=== PATIENT | male | born 1950 | race Caucasian/White ===

== ENCOUNTER 2017-09-23 20:33 | Emergency (ER) | payer OTHER ==
[2017-09-23 20:44] VITALS: TEMP 97.7
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
[2017-09-23 22:23] VITALS: BP 146/90; PULSE 70; RESP 18
== END 2017-09-23 22:23 | disposition home or self-care (01) ==
LOC: EC 20:33
DX: S40.811A Abrasion of right upper arm, initial encounter (principal); S70.211A Abrasion, right hip, initial encounter; S80.211A Abrasion, right knee, initial encounter; S90.511A Abrasion, right ankle, initial encounter; V23.4XXA Motorcycle driver injured in collision with car, pick-up truck or van in traffic accident, initial encounter; Y92.410 Unspecified street and highway as the place of occurrence of the external cause
CPT/HCPCS: 70450; 72125; 99284

== ENCOUNTER 2019-01-02 06:40 | Day surgery (SDC) | payer MEDICARE, OTHER ==
[2018-12-30 14:52] VITALS: BMI 24.3
[~2019-01-02 06:40] MED LIST: LACTATED RINGERS 1,000 ML IV SCH; LIDOCAINE 1% 20 ML VIAL (10MG/ML) FOR IV START INTRADERMA PRN
[2019-01-02 07:10] VITALS: RESP 18; TEMP 97.9
[2019-01-02 07:14] LABS: Glucose,Whole Blood 116 mg/dL (75-99)
[2019-01-02] MEDS ORDERED: LIDOCAINE 1% INJ 10MG/ML (20 ML MDV) ONE (07:49)
[2019-01-02] MEDS ORDERED: PROPOFOL 10 MG/ML 20 ML VIAL IV ONE (07:49)
--- NOTE | 2019-01-02 07:54 | P.GSHP ---
History of Present Illness H&P Date: 01/02/19 Chief Complaint: Colon cancer screening Patient today for colonoscopy. Last colonoscopy 5-6 years ago. He was told he had polyps then. No bowel related complaints. No family history of colon cancer. Past Medical History Past Medical History: Diabetes Mellitus, Hyperlipidemia, Hypertension Additional Past Medical History / Comment(s): hx. colon polyps History of Any Multi-Drug Resistant Organisms: None Reported Past Surgical History: Hernia Repair Additional Past Surgical History / Comment(s): elbow surgery, colonoscopies Past Anesthesia/Blood Transfusion Reactions: Previous Problems w/ Anesthesia Additional Past Anesthesia/Blood Transfusion Reaction / Comment(s): slow to wake up @times Past Psychological History: No Psychological Hx Reported Smoking Status: Never smoker Past Alcohol Use History: Occasional Past Drug Use History: None Reported - Past Family History Mother Family Medical History: No Reported History Medications and Allergies Home Medications Medication Instructions Recorded Confirmed Type Aspirin 81 mg PO DAILY 12/30/18 12/30/18 History Benazepril(Unknown Dose) 40 mg PO HS 12/30/18 01/02/19 History Glimepiride(Unknown Dose) 4 mg PO DAILY 12/30/18 01/02/19 History Lipitor(Unknown Dose) 1 tab PO HS 12/30/18 01/02/19 History Metformin(Unknown Dose) 1,000 mg PO BID 12/30/18 01/02/19 History Allergies Allergy/AdvReac Type Severity Reaction Status Date / Time No Known Allergies Allergy Verified 12/30/18 14:48 Surgical - Exam Vital Signs Temp Pulse Resp BP Pulse Ox 97.9 F 77 18 130/83 99 01/02/19 07:08 01/02/19 07:08 01/02/19 07:08 01/02/19 07:08 01/02/19 07:08 Physical exam: General: Well-developed, well-nourished HEENT: Normocephalic, sclerae nonicteric Abdomen: Nontender, nondistended Extremities: No edema Neuro: Alert and oriented Results - Labs Abnormal Lab Results - Last 24 Hours (Table) 01/02/19 Range/Units 07:10 POC Glucose (mg/dL) 116 H (75-99) mg/dL Assessment and Plan (1) Colon cancer screening Narrative/Plan: Will proceed with colonoscopy at this time Current Visit: Yes Status: Acute Code(s): Z12.11 - ENCOUNTER FOR SCREENING FOR MALIGNANT NEOPLASM OF COLON SNOMED Code(s): 602900090
--- NOTE | 2019-01-02 08:07 | P.PCN ---
Date of Procedure: 01/02/19 Procedure(s) Performed: PREOPERATIVE DIAGNOSIS: Colon cancer screening, history of polyps POSTOPERATIVE DIAGNOSIS: Normal exam PROCEDURE: Colonoscopy ANESTHESIA: MAC SURGEON: Cedric Arroyo M.D. SPECIMENS: None ENDOSCOPIC PROCEDURE: The patient was placed on the endoscopy table in the left decubitus position. The Olympus colonoscope was inserted into the anus and passed under direct visualization to the base of the cecum. The appendiceal orifice was visualized. From that point the scope was slowly withdrawn inspecting all surfaces carefully. There were no neoplastic inflammatory or polypoid lesions throughout the cecum, ascending, transverse, descending, sigmoid and rectum. There was no visible diverticulosis noted. Digital rectal examination was normal. The patient was taken to the recovery room in stable condition per anesthesia guidelines. RECOMMENDATIONS: Increase fiber. Follow-up colonoscopy 10 years.
[2019-01-02 08:32] VITALS: BP 137/81; PULSE 66
--- NOTE | 2019-01-02 09:28 | P.PCN ---
Date of Procedure: 01/02/19 Procedure(s) Performed: PREOPERATIVE DIAGNOSIS: Colon cancer screening POSTOPERATIVE DIAGNOSIS: Transverse colon polyp, sigmoid colon polyp PROCEDURE: Colonoscopy with snare polypectomy ANESTHESIA: MAC SURGEON: Cedric Arroyo M.D. SPECIMENS: Polyps ENDOSCOPIC PROCEDURE: The patient was placed on the endoscopy table in the left decubitus position. The Olympus colonoscope was inserted into the anus and passed under direct visualization to the base of the cecum. The appendiceal orifice was visualized. From that point the scope was slowly withdrawn inspecting all surfaces carefully. There were no neoplastic inflammatory or polypoid lesions throughout the cecum and ascending colon. In the transverse colon a small polyp was identified and removed using the snare with cautery technique. The transverse and descending colon appeared normal. In the sigmoid colon another small polyp was identified and removed in a similar fashion. The remainder of the sigmoid and rectum was normal. There was no visible diverticulosis. Digital rectal examination was normal. The patient was taken to the recovery room in stable condition per anesthesia guidelines. RECOMMENDATIONS: Weight biopsy results. Anticipate follow-up colonoscopy 5 years.
== END 2019-01-02 08:52 | disposition home or self-care (01) ==
LOC: ORWHC2ENDO 06:40
PROVIDERS: ATTEND Surgery
DX: Z12.11 Encounter for screening for malignant neoplasm of colon (principal); D12.5 Benign neoplasm of sigmoid colon; D12.3 Benign neoplasm of transverse colon; Z86.010 Personal history of colon polyps; E11.9 Type 2 diabetes mellitus without complications; E78.5 Hyperlipidemia, unspecified; I10 Essential (primary) hypertension; Z79.82 Long term (current) use of aspirin; Z79.84 Long term (current) use of oral hypoglycemic drugs
CPT/HCPCS: 45378; J2001; J2704

== ENCOUNTER 2020-05-22 16:42 | Emergency (ER) | payer MEDICARE ==
[2020-05-22 16:51] VITALS: BP 142/87; PULSE 99; RESP 17; TEMP 98.4
--- NOTE | 2020-05-22 17:03 | ED ---
General Adult HPI - General Chief complaint: Recheck/Abnormal Lab/Rx Stated complaint: Hypertensive Time Seen by Provider: 05/22/20 16:56 Source: patient, family Mode of arrival: wheelchair Limitations: no limitations - History of Present Illness Initial comments: Patient presents the ED with his for evaluation. Patient states that he has not "felt well" today. Patient states that he felt "jittery" about an hour ago, and he thought that his blood glucose was low, so he checked his blood glucose, but it was normal. Patient states that he then checked his blood pressure and he obtained a reading of 184/90. Patient states he also obtained a heart rate reading in the 140s, so he decided to come to the ED. Patient states that he now feels better. Patient states that he has a history of atrial fibrillation, and he says that he had a cardiac ablation many years ago. Patient denies having any pain, trauma or injury, fever, headache, focal numbness/weakness/neuro deficit, chest pain or pressure, dyspnea, palpitations, dizziness, syncope, abdominal pain, nausea/vomiting/diarrhea, bloody or melanotic stool, dysuria or urinary symptoms, decreased urine output, leg or calf swelling or pain, or any other symptoms or complaints. Patient denies any recent change in his medications. - Related Data Home Medications Medication Instructions Recorded Confirmed Aspirin 81 mg PO DAILY 12/30/18 05/22/20 ALPRAZolam [Xanax] 0.25 mg PO HS PRN 05/22/20 05/22/20 Atorvastatin [Lipitor] 80 mg PO HS 05/22/20 05/22/20 Benazepril HCl 40 mg PO DAILY 05/22/20 05/22/20 Ergocalciferol (Vitamin D2) 1,250 mcg PO Q30D 05/22/20 05/22/20 [Vitamin D2 (50,000 Iu)] Glimepiride [Amaryl] 2 mg PO BID 05/22/20 05/22/20 Semaglutide [Ozempic] 2 mg SQ TH 05/22/20 05/22/20 metFORMIN HCL 1,000 mg PO BID 05/22/20 05/22/20 traZODone HCL 100 mg PO HS 05/22/20 05/22/20 Allergies Allergy/AdvReac Type Severity Reaction Status Date / Time No Known Allergies Allergy Verified 05/22/20 17:46 Review of Systems ROS Statement: Those systems with pertinent positive or pertinent negative responses have been documented in the HPI. ROS Other: All systems not noted in ROS Statement are negative. Past Medical History Past Medical History: Diabetes Mellitus, Hyperlipidemia, Hypertension Additional Past Medical History / Comment(s): hx. colon polyps History of Any Multi-Drug Resistant Organisms: None Reported Past Surgical History: Hernia Repair Additional Past Surgical History / Comment(s): elbow surgery, colonoscopies Past Anesthesia/Blood Transfusion Reactions: Previous Problems w/ Anesthesia Additional Past Anesthesia/Blood Transfusion Reaction / Comment(s): slow to wake up @times Past Psychological History: No Psychological Hx Reported Smoking Status: Never smoker Past Alcohol Use History: Daily Past Drug Use History: None Reported - Past Family History Mother Family Medical History: No Reported History General Exam Limitations: no limitations General appearance: alert, in no apparent distress Head exam: Present: atraumatic, normocephalic Eye exam: Present: normal appearance, PERRL, EOMI ENT exam: Present: mucous membranes moist Neck exam: Present: other (Trachea is in midline) Respiratory exam: Present: normal lung sounds bilaterally. Absent: respiratory distress, wheezes, rales, rhonchi, stridor Cardiovascular Exam: Present: regular rate, normal rhythm, normal heart sounds, other (Normal radial pulses bilaterally) GI/Abdominal exam: Present: soft. Absent: distended, tenderness, guarding Extremities exam: Present: full ROM. Absent: tenderness, pedal edema, calf tenderness Neurological exam: Present: alert, oriented X3, CN II-XII intact. Absent: motor sensory deficit Psychiatric exam: Present: normal affect, normal mood Skin exam: Present: warm, dry, intact, normal color Course Vital Signs 05/22/20 16:45 Temperature 98.4 F Pulse Rate 99 Respiratory 17 Rate Blood Pressure 142/87 O2 Sat by Pulse 98 Oximetry - Reevaluation(s) Reevaluation #1: 05/22/20 18:40 Patient states that he currently feels "fine", and he denies having any symptoms at this time. Patient remains alert and breathing comfortably with a normal room air oxygen saturation. Patient remains in a sinus rhythm with heart rate in the 90s on the supervisor detasseling crew. Patient and are aware the patient's test results. I have discussed with the patient the option to admit him to the hospital for observation and cardiac monitoring, but he declined, stating that he wishes to go home at this time. Patient assures me that he will return to the ED should his symptoms return or worsen. Patient was counseled about his symptoms and about high blood pressure. Patient was clearly explained return and follow-up instructions, and he was instructed to have a low threshold for return to the ED should his symptoms worsen. Patient was also instructed to follow up closely with his primary care provider. Patient feels comfortable with this plan. EKG Findings - EKG Comments: EKG Findings:: Normal sinus rhythm, ventricular rate of 97 bpm, no ectopy, normal VA and QRS intervals, normal QT interval, normal axis, no ST or T-wave abnormality Medical Decision Making - Medical Decision Making Patient has been in a sinus rhythm on the supervisor detasseling crew while in the ED, and his blood pressure has been in the normal range. Patient has also been asymptomatic while in the ED. Patient has some mild electrolyte disturbances on laboratory evaluation, but I do not think that they are the etiology of the patient's symptoms. Patient's labs are otherwise fairly unremarkable. I do not suspect an emergent medical condition. Will discharge patient home with his at this time. - Lab Data Result diagrams: 05/22/20 17:27 05/22/20 17:27 Lab Results 05/22/20 05/22/20 05/22/20 Range/Units 17:27 17:27 17:27 WBC 5.5 (3.8-10.6) k/uL RBC 4.57 (4.30-5.90) m/uL Hgb 12.8 L (13.0-17.5) gm/dL Hct 38.9 L (39.0-53.0) % MCV 85.1 (80.0-100.0) fL MCH 27.9 (25.0-35.0) pg MCHC 32.8 (31.0-37.0) g/dL RDW 14.4 (11.5-15.5) % Plt Count 274 (150-450) k/uL MPV 8.1 Neutrophils % 52 % Lymphocytes % 39 % Monocytes % 5 % Eosinophils % 1 % Basophils % 0 % Neutrophils # 2.8 (1.3-7.7) k/uL Lymphocytes # 2.1 (1.0-4.8) k/uL Monocytes # 0.3 (0-1.0) k/uL Eosinophils # 0.0 (0-0.7) k/uL Basophils # 0.0 (0-0.2) k/uL PT 10.9 (9.0-12.0) sec INR 1.0 (<1.2) APTT 22.4 (22.0-30.0) sec Sodium 129 L (137-145) mmol/L Potassium 5.2 H (3.5-5.1) mmol/L Chloride 96 L (98-107) mmol/L Carbon Dioxide 23 (22-30) mmol/L Anion Gap 10 mmol/L BUN 12 (9-20) mg/dL Creatinine 0.79 (0.66-1.25) mg/dL Est GFR (CKD-EPI)AfAm >90 (>60 ml/min/1.73 sqM) Est GFR (CKD-EPI)NonAf >90 (>60 ml/min/1.73 sqM) Glucose 159 H (74-99) mg/dL Calcium 9.6 (8.4-10.2) mg/dL Magnesium 1.3 L (1.6-2.3) mg/dL Total Bilirubin 0.5 (0.2-1.3) mg/dL AST 28 (17-59) U/L ALT 19 (4-49) U/L Alkaline Phosphatase 43 (38-126) U/L Troponin I (0.000-0.034) ng/mL Total Protein 7.1 (6.3-8.2) g/dL Albumin 4.5 (3.5-5.0) g/dL TSH 2.850 (0.465-4.680) mIU/L Urine Color Urine Appearance (Clear) Urine pH (5.0-8.0) Ur Specific [place] (1.001-1.035) Urine Protein (Negative) Urine Glucose (UA) (Negative) Urine Ketones (Negative) Urine Blood (Negative) Urine Nitrite (Negative) Urine Bilirubin (Negative) Urine Urobilinogen (<2.0) mg/dL Ur Leukocyte Esterase (Negative) 05/22/20 05/22/20 Range/Units 17:27 18:03 WBC (3.8-10.6) k/uL RBC (4.30-5.90) m/uL Hgb (13.0-17.5) gm/dL Hct (39.0-53.0) % MCV (80.0-100.0) fL MCH (25.0-35.0) pg MCHC (31.0-37.0) g/dL RDW (11.5-15.5) % Plt Count (150-450) k/uL MPV Neutrophils % % Lymphocytes % % Monocytes % % Eosinophils % % Basophils % % Neutrophils # (1.3-7.7) k/uL Lymphocytes # (1.0-4.8) k/uL Monocytes # (0-1.0) k/uL Eosinophils # (0-0.7) k/uL Basophils # (0-0.2) k/uL PT (9.0-12.0) sec INR (<1.2) APTT (22.0-30.0) sec Sodium (137-145) mmol/L Potassium (3.5-5.1) mmol/L Chloride (98-107) mmol/L Carbon Dioxide (22-30) mmol/L Anion Gap mmol/L BUN (9-20) mg/dL Creatinine (0.66-1.25) mg/dL Est GFR (CKD-EPI)AfAm (>60 ml/min/1.73 sqM) Est GFR (CKD-EPI)NonAf (>60 ml/min/1.73 sqM) Glucose (74-99) mg/dL Calcium (8.4-10.2) mg/dL Magnesium (1.6-2.3) mg/dL Total Bilirubin (0.2-1.3) mg/dL AST (17-59) U/L ALT (4-49) U/L Alkaline Phosphatase (38-126) U/L Troponin I <0.012 (0.000-0.034) ng/mL Total Protein (6.3-8.2) g/dL Albumin (3.5-5.0) g/dL TSH (0.465-4.680) mIU/L Urine Color Yellow Urine Appearance Clear (Clear) Urine pH 5.5 (5.0-8.0) Ur Specific [place] 1.021 (1.001-1.035) Urine Protein Negative (Negative) Urine Glucose (UA) 3+ H (Negative) Urine Ketones Negative (Negative) Urine Blood Negative (Negative) Urine Nitrite Negative (Negative) Urine Bilirubin Negative (Negative) Urine Urobilinogen <2.0 (<2.0) mg/dL Ur Leukocyte Esterase Negative (Negative) - Radiology Data Radiology results: image reviewed (Chest x-ray is negative) Disposition Clinical Impression: Elevated blood pressure reading, Jittery feeling Disposition: HOME SELF-CARE Condition: Stable Instructions (If sedation given, give patient instructions): Hypertension (ED) Additional Instructions: Return to the ER immediately should you develop any significant pain, a fever, chest pain, shortness of breath, feeling dizzy or faint, vomiting, or new or worsening symptoms. Follow up closely with your primary care provider. Is patient prescribed a controlled substance at d/c from ED?: No Referrals: Hernando Kessler MD [Primary Care Provider] - 1-2 days Time of Disposition: 18:52
[2020-05-22 17:39] LABS: Basophils % (A) 0 %; Eosinophils % (A) 1 %; HCT 38.9 % (39.0-53.0); HGB 12.8 gm/dL (13.0-17.5); Lymphocytes # (A) 2.1 k/uL (1.0-4.8); Lymphocytes % (A) 39 %; MCH 27.9 pg (25.0-35.0); MCHC 32.8 g/dL (31.0-37.0); MCV 85.1 fL (80.0-100.0); Mean Platelet Volume 8.1; Monocytes # (A) 0.3 k/uL (0-1.0); Monocytes % (A) 5 %; Neutrophils # (A) 2.8 k/uL (1.3-7.7); Neutrophils % (A) 52 %; Platelet Count 274 k/uL (150-450); RBC 4.57 m/uL (4.30-5.90); RDW 14.4 % (11.5-15.5); WBC 5.5 k/uL (3.8-10.6)
--- NOTE | 2020-05-22 17:41 | XR ---
EXAMINATION TYPE: XR chest 2V DATE OF EXAM: 05/22/2020 COMPARISON: NONE HISTORY: Pain TECHNIQUE: 2 views FINDINGS: Heart and mediastinum are normal. Lungs are clear. Diaphragm is normal. Bony thorax is inta ct. There are chest leads. IMPRESSION: Normal chest.
[2020-05-22 17:45] LABS: ALT 19 U/L (4-49); AST 28 U/L (17-59); African American GFR (CKD) >90 (>60 ml/min/1.73 sqM); Albumin 4.5 g/dL (3.5-5.0); Alkaline Phosphatase 43 U/L (38-126); Anion Gap 10 mmol/L; Blood Urea Nitrogen 12 mg/dL (9-20); Calcium 9.6 mg/dL (8.4-10.2); Carbon Dioxide 23 mmol/L (22-30); Chloride 96 mmol/L (98-107); Glucose 159 mg/dL (74-99); Magnesium 1.3 mg/dL (1.6-2.3); Non-African American GFR(CKD) >90 (>60 ml/min/1.73 sqM); Sodium 129 mmol/L (137-145); Total Bilirubin 0.5 mg/dL (0.2-1.3); Total Protein 7.1 g/dL (6.3-8.2)
[2020-05-22 17:51] LABS: Partial Thromboplastin Time 22.4 sec (22.0-30.0); Prothrombin Time 10.9 sec (9.0-12.0)
[2020-05-22 17:55] LABS: Potassium 5.2 mmol/L (3.5-5.1)
[2020-05-22 18:09] LABS: Appearance,Urine Clear (Clear); Bilirubin,Urine Negative (Negative); Blood,Urine Negative (Negative); Color,Urine Yellow; Glucose,Urine (UA) 3+ (Negative); Ketones,Urine Negative (Negative); Leukocyte Esterase,Urine Negative (Negative); Nitrite,Urine Negative (Negative); PH, Urine 5.5 (5.0-8.0); Protein,Urine Negative (Negative); Specific Gravity,Urine 1.021 (1.001-1.035); Urobilinogen,Urine <2.0 mg/dL (<2.0)
== END 2020-05-22 19:06 | disposition home or self-care (01) ==
LOC: EC 16:42
DX: I10 Essential (primary) hypertension (principal); E11.9 Type 2 diabetes mellitus without complications; E78.5 Hyperlipidemia, unspecified; Z79.84 Long term (current) use of oral hypoglycemic drugs; Z79.899 Other long term (current) drug therapy
CPT/HCPCS: 36415; 71046; 80053; 81003; 83735; 84443; 84484; 85025; 85610; 85730; 93005; 99284

== ENCOUNTER 2020-12-10 19:09 | Inpatient (IN) | payer MEDICARE ==
[2020-12-10] MEDS ORDERED: ACETAMINOPHEN TAB 500 MG TAB PO STA (19:35)
[2020-12-10] MEDS ORDERED: SODIUM CHLORIDE 0.9% 1,000 ML IV STA (19:35)
[2020-12-10] MEDS ORDERED: KETOROLAC 15 MG/ML 1 ML VIAL IVP STA (19:37)
[2020-12-10 20:27] LABS: Basophils % (A) 0 %; Eosinophils % (A) 0 %; HCT 33.6 % (39.0-53.0); HGB 11.9 gm/dL (13.0-17.5); Lymphocytes # (A) 0.8 k/uL (1.0-4.8); Lymphocytes % (A) 13 %; MCHC 35.5 g/dL (31.0-37.0); MCV 81.8 fL (80.0-100.0); Mean Platelet Volume 8.7; Monocytes # (A) 0.4 k/uL (0-1.0); Monocytes % (A) 6 %; Neutrophils # (A) 4.8 k/uL (1.3-7.7); Neutrophils % (A) 78 %; Platelet Count 177 k/uL (150-450); RBC 4.11 m/uL (4.30-5.90); RDW 14.8 % (11.5-15.5); WBC 6.2 k/uL (3.8-10.6)
[2020-12-10 20:36] LABS: ALT 17 U/L (4-49); AST 28 U/L (17-59); African American GFR (CKD) >90 (>60 ml/min/1.73 sqM); Albumin 3.5 g/dL (3.5-5.0); Alkaline Phosphatase 68 U/L (38-126); Anion Gap 7 mmol/L; Blood Urea Nitrogen 6 mg/dL (9-20); Calcium 8.7 mg/dL (8.4-10.2); Carbon Dioxide 22 mmol/L (22-30); Chloride 90 mmol/L (98-107); Glucose 234 mg/dL (74-99); Magnesium 1.1 mg/dL (1.6-2.3); Non-African American GFR(CKD) >90 (>60 ml/min/1.73 sqM); Total Bilirubin 0.4 mg/dL (0.2-1.3)
--- NOTE | 2020-12-10 20:47 | XR ---
EXAMINATION TYPE: XR chest 2V DATE OF EXAM: 12/10/2020 COMPARISON: 05/22/2020 HISTORY: Cough TECHNIQUE: FINDINGS: Heart and mediastinum are normal. There is a mild airspace infiltrate at the left lung base . Right lung is clear. There are no hilar masses. Bony thorax is intact. IMPRESSION: There is a new pneumonia at the left lung base compared to old exam. Normal heart.
[2020-12-10 20:55] LABS: Sodium 119 mmol/L (137-145)
[2020-12-10] MEDS ORDERED: SODIUM CHLORIDE 0.9% 1,000 ML IV ONE (21:03)
--- NOTE | 2020-12-10 21:11 | ED ---
General Adult HPI - General Chief complaint: Fever Stated complaint: fever Time Seen by Provider: 12/10/20 19:18 Source: patient Mode of arrival: ambulatory Limitations: no limitations - History of Present Illness Initial comments: Patient is a 70-year-old male with past medical history remarkable for hypertension, diabetes who presents emergency Department complaining of a 2 to three-day history of fevers of unknown etiology. He states over this time he is also having a nonproductive cough. He states he did feel nauseous once 2 days ago and had 1 episode of non-bilious, bloody emesis. He also endorses having 1 episode of nonbloody diarrhea over this time as well. He denies any chest pain. He does endorse a mild headache, approximate 7 out of 10 in severity that feels like a tight belt tied around his head. He also endorses a fever and night sweats. He has been attempting to intermittently take ibuprofen to control the fever, last taken greater than 5 hours ago. He denies any urinary complaints. Denies any current abdominal complaints including nausea, pain, vomiting, diarrhea, change in bowel habits. States he has been trying to dehydrated by taking lots of fluids. He denies any known sick contacts. He is vaccinated for COVID-19. He otherwise has no acute complaints at this time. He denies any neck stiffness or pain. Denies any numbness. He does endorse generalized body aches. He states these are typically worse when his fevers are high. He is uncertain his T-max. - Related Data Home Medications Medication Instructions Recorded Confirmed Aspirin 81 mg PO DAILY 12/30/18 05/22/20 ALPRAZolam [Xanax] 0.25 mg PO HS PRN 05/22/20 05/22/20 Atorvastatin [Lipitor] 80 mg PO HS 05/22/20 05/22/20 Benazepril HCl 40 mg PO DAILY 05/22/20 05/22/20 Ergocalciferol (Vitamin D2) 1,250 mcg PO Q30D 05/22/20 05/22/20 [Vitamin D2 (50,000 Iu)] Glimepiride [Amaryl] 2 mg PO BID 05/22/20 05/22/20 Semaglutide [Ozempic] 2 mg SQ TH 05/22/20 05/22/20 metFORMIN HCL [Glucophage] 1,000 mg PO BID 05/22/20 05/22/20 traZODone HCL 100 mg PO HS 05/22/20 05/22/20 Allergies Allergy/AdvReac Type Severity Reaction Status Date / Time No Known Allergies Allergy Verified 12/10/20 19:13 Review of Systems ROS Statement: Those systems with pertinent positive or pertinent negative responses have been documented in the HPI. Review of Systems: CONST: Endorses fever EYES: Denies blurry vision ENT: Denies nasal congestion C/V: Denies Chest pain RESP: Endorses cough GI: Denies abdominal pain : Denies dysuria SKIN: Denies rash. MSK: Endorses body aches NEURO: Denies headache ROS Other: All systems not noted in ROS Statement are negative. Past Medical History Past Medical History: Diabetes Mellitus, Hyperlipidemia, Hypertension Additional Past Medical History / Comment(s): hx. colon polyps History of Any Multi-Drug Resistant Organisms: None Reported Past Surgical History: Hernia Repair Additional Past Surgical History / Comment(s): elbow surgery, colonoscopies Past Anesthesia/Blood Transfusion Reactions: Previous Problems w/ Anesthesia Additional Past Anesthesia/Blood Transfusion Reaction / Comment(s): slow to wake up @times Past Psychological History: No Psychological Hx Reported Smoking Status: Never smoker Past Alcohol Use History: Daily Past Drug Use History: None Reported - Past Family History Mother Family Medical History: No Reported History General Exam - General Exam Comments Initial Comments: General: Appears in no acute distress. HEAD: Normal with no signs of head trauma. EYES: PERRLA, EOMI, conjunctiva normal, no discharge. Pupils are equal and 3 mm bilaterally. ENT: Hearing grossly intact, normal oropharynx. No signs of tonsillar exudates. No tonsillar erythema. No rhinorrhea. No sinus tenderness to palpation. Mildly dry mucus membranes. RESPIRATORY: Relatively clear breath sounds bilaterally without any obvious wheezes or rhonchi. C/V: Regular rate and rhythm. S1 and S2 auscultated, no edema, peripheral pulses 2+ and intact throughout ABD: Abd is soft, nontender, nondistended. There are no peritoneal signs. Normal abdominal exam. EXT: Normal range of motion, no obvious deformity SKIN: No rashes or lesions observed on exposed skin. Patient is warm to touch. NEURO: Alert and oriented x 4. Cranial nerves II-XII intact. No focal sensory or strength deficits. Cerebellar function appears to be intact as evident by normal finger to nose testing and [id number] testing. Patient is able to ambulate without difficulty. Neurological exam is normal. Limitations: no limitations Course Vital Signs 12/10/20 12/10/20 12/10/20 19:11 20:00 21:04 Temperature 103 F H 99.9 F H Pulse Rate 95 79 81 Respiratory 20 18 18 Rate Blood Pressure 157/74 123/75 123/74 O2 Sat by Pulse 95 96 96 Oximetry 12/10/20 22:09 Temperature 98.2 F Pulse Rate 75 Respiratory 18 Rate Blood Pressure 119/70 O2 Sat by Pulse 96 Oximetry Medical Decision Making - Medical Decision Making Based on the patient's presentation and physical exam, I'm concerned for acute infectious etiology. The patient. Therefore we will obtain laboratory studies including lactate and blood cultures. Also obtain CBC as well as BMP. Chest x- ray will also be obtained to evaluate for pneumonia. We will obtain fluent COVID-19 swabs. Urinalysis is ordered at this time as well. He'll be started on 1 L fluid bolus for his dehydration as well as Toradol and acetaminophen for his fever. Patient will also be given Benadryl and Compazine for his headache. Patient was in agreement with this plan. He will be connected to continuous cardiac monitoring while he is here in the department. He currently only has 1 SIRS criteria, febrile. Patient's laboratory studies were remarkable for a mild normocytic anemia with a hemoglobin of 11.9. Patient is hyponatremic with a sodium of 119 and hypochloremic with a chloride of 90. He is mildly hyperglycemic to 234. He is hypomagnesemic to 1.1. Lactic acid is normal. He is COVID-19 negative, flu negative. Urine is still pending at this time. Patient's chest x-ray was remarkable for left lower lobe pneumonia. On reevaluation, patient's headache is improved. Fever is also improving. I discussed with him that it appears that he is dehydrated and has severe like to light abnormalities, consisting of hyponatremia, hypomagnesemia. We'll provide the patient with IV magnesium for replenishment as well as start the patient on an IV normal saline drip, rate set to be 75 mL an hour with goal correction sodium of 129 over a 24 hour period. Repeat Na prior to starting the drip was 122 after 1.5L bolus. He has no severe symptoms at this time, I do not believe that he requires ICU for his hyponatremia and nor does he require hypertonic saline. We will repeat sodium levels over the course of the night to ensure that it is slowly increasing, and this was ordered. Patient will be started on Rocephin and azithromycin for his community-acquired pneumonia. He was in agreement this plan. Patient will therefore require admission to the hospital in serious condition to telemetry bed. I spoke with the admitting team preschool special education teacher, Dr. Kessler who accepted the admission. - Lab Data Result diagrams: 12/10/20 19:49 12/10/20 21:32 Lab Results 12/10/20 12/10/20 12/10/20 Range/Units 19:49 19:49 19:49 WBC 6.2 (3.8-10.6) k/uL RBC 4.11 L (4.30-5.90) m/uL Hgb 11.9 L (13.0-17.5) gm/dL Hct 33.6 L (39.0-53.0) % MCV 81.8 (80.0-100.0) fL MCH 29.0 (25.0-35.0) pg MCHC 35.5 (31.0-37.0) g/dL RDW 14.8 (11.5-15.5) % Plt Count 177 (150-450) k/uL MPV 8.7 Neutrophils % 78 % Lymphocytes % 13 % Monocytes % 6 % Eosinophils % 0 % Basophils % 0 % Neutrophils # 4.8 (1.3-7.7) k/uL Lymphocytes # 0.8 L (1.0-4.8) k/uL Monocytes # 0.4 (0-1.0) k/uL Eosinophils # 0.0 (0-0.7) k/uL Basophils # 0.0 (0-0.2) k/uL Sodium (137-145) mmol/L Potassium (3.5-5.1) mmol/L Chloride (98-107) mmol/L Carbon Dioxide (22-30) mmol/L Anion Gap mmol/L BUN (9-20) mg/dL Creatinine (0.66-1.25) mg/dL Est GFR (CKD-EPI)AfAm (>60 ml/min/1.73 sqM) Est GFR (CKD-EPI)NonAf (>60 ml/min/1.73 sqM) Glucose (74-99) mg/dL Plasma Lactic Acid Riccardo 1.0 (0.7-2.0) mmol/L Calcium (8.4-10.2) mg/dL Magnesium (1.6-2.3) mg/dL Total Bilirubin (0.2-1.3) mg/dL AST (17-59) U/L ALT (4-49) U/L Alkaline Phosphatase (38-126) U/L Total Protein (6.3-8.2) g/dL Albumin (3.5-5.0) g/dL Coronavirus (PCR) (Not Detectd) Influenza Type A RNA Not Detected (Not Detectd) Influenza Type B (PCR) Not Detected (Not Detectd) 12/10/20 12/10/20 12/10/20 Range/Units 19:49 20:24 21:32 WBC (3.8-10.6) k/uL RBC (4.30-5.90) m/uL Hgb (13.0-17.5) gm/dL Hct (39.0-53.0) % MCV (80.0-100.0) fL MCH (25.0-35.0) pg MCHC (31.0-37.0) g/dL RDW (11.5-15.5) % Plt Count (150-450) k/uL MPV Neutrophils % % Lymphocytes % % Monocytes % % Eosinophils % % Basophils % % Neutrophils # (1.3-7.7) k/uL Lymphocytes # (1.0-4.8) k/uL Monocytes # (0-1.0) k/uL Eosinophils # (0-0.7) k/uL Basophils # (0-0.2) k/uL Sodium 119 L* 122 L (137-145) mmol/L Potassium 4.0 (3.5-5.1) mmol/L Chloride 90 L (98-107) mmol/L Carbon Dioxide 22 (22-30) mmol/L Anion Gap 7 mmol/L BUN 6 L (9-20) mg/dL Creatinine 0.60 L (0.66-1.25) mg/dL Est GFR (CKD-EPI)AfAm >90 (>60 ml/min/1.73 sqM) Est GFR (CKD-EPI)NonAf >90 (>60 ml/min/1.73 sqM) Glucose 234 H (74-99) mg/dL Plasma Lactic Acid Riccardo (0.7-2.0) mmol/L Calcium 8.7 (8.4-10.2) mg/dL Magnesium 1.1 L (1.6-2.3) mg/dL Total Bilirubin 0.4 (0.2-1.3) mg/dL AST 28 (17-59) U/L ALT 17 (4-49) U/L Alkaline Phosphatase 68 (38-126) U/L Total Protein 6.0 L (6.3-8.2) g/dL Albumin 3.5 (3.5-5.0) g/dL Coronavirus (PCR) Not Detected (Not Detectd) Influenza Type A RNA (Not Detectd) Influenza Type B (PCR) (Not Detectd) Disposition Clinical Impression: Community acquired pneumonia, Hyponatremia, Hyperglycemia, Hypomagnesemia, Febrile, Normocytic anemia, Dehydration Disposition: ADMITTED IP TO THIS HOSP Condition: Serious
[2020-12-10] MEDS ORDERED: diphenhydrAMINE 50 MG/ML 1 ML VIAL IVP STA (21:17)
[2020-12-10] MEDS ORDERED: PROCHLORPERAZINE INJ 10 MG/2 ML VIAL IVP STA (21:17)
[2020-12-10] MEDS ORDERED: NALOXONE 0.4 MG/ML 1 ML VIAL IV PRN (21:39)
[2020-12-10] MEDS: MAGNESIUM SULFATE-D5W PMX 1 GM in DEXTROSE/WATER 1 100ML.BAG IVPB SCH ×2 (21:49→22:54)
[2020-12-10] MEDS ORDERED: MORPHINE SULFATE 4 MG/ML SYRINGE IV PRN (21:54)
[2020-12-10] MEDS ORDERED: AZITHROMYCIN 500 MG in SODIUM CHLORIDE 0.9% 250 ML IVPB STA (21:59)
[2020-12-10] MEDS: SODIUM CHLORIDE 0.9% 1,000 ML IV SCH (22:53)
[2020-12-11 05:51] LABS: Basophils % (A) 0 %; Eosinophils % (A) 0 %; HCT 37.4 % (39.0-53.0); HGB 12.5 gm/dL (13.0-17.5); Lymphocytes # (A) 1.2 k/uL (1.0-4.8); Lymphocytes % (A) 22 %; MCH 28.5 pg (25.0-35.0); MCHC 33.4 g/dL (31.0-37.0); MCV 85.3 fL (80.0-100.0); Mean Platelet Volume 8.4; Monocytes # (A) 0.3 k/uL (0-1.0); Monocytes % (A) 5 %; Neutrophils # (A) 3.8 k/uL (1.3-7.7); Neutrophils % (A) 70 %; Platelet Count 195 k/uL (150-450); RBC 4.39 m/uL (4.30-5.90); RDW 15.2 % (11.5-15.5); WBC 5.5 k/uL (3.8-10.6)
[2020-12-11 06:12] LABS: African American GFR (CKD) >90 (>60 ml/min/1.73 sqM); Anion Gap 7 mmol/L; Blood Urea Nitrogen 5 mg/dL (9-20); Calcium 8.8 mg/dL (8.4-10.2); Carbon Dioxide 25 mmol/L (22-30); Chloride 97 mmol/L (98-107); Glucose 171 mg/dL (74-99); Magnesium 1.8 mg/dL (1.6-2.3); Non-African American GFR(CKD) >90 (>60 ml/min/1.73 sqM); Sodium 129 mmol/L (137-145)
[2020-12-11 06:44] LABS: Appearance,Urine Clear (Clear); Bilirubin,Urine Negative (Negative); Blood,Urine Negative (Negative); Color,Urine Light Yellow; Glucose,Urine (UA) 4+ (Negative); Ketones,Urine Negative (Negative); Leukocyte Esterase,Urine Negative (Negative); Nitrite,Urine Negative (Negative); Protein,Urine Negative (Negative); Specific Gravity,Urine 1.003 (1.001-1.035); Urobilinogen,Urine <2.0 mg/dL (<2.0)
[2020-12-11] MEDS: ASPIRIN 81 MG PO SCH (08:14)
[2020-12-11] MEDS: metFORMIN 500 MG TAB PO SCH ×2 (08:14→20:36)
--- NOTE | 2020-12-11 10:51 | HP ---
HISTORY AND PHYSICAL CHIEF COMPLAINT: Night sweats, myalgias, headache, dry cough and fever. HISTORY OF PRESENT ILLNESS: This is the first known admission for this 70-year-old white male who has longstanding history of mild hypertension and diabetes. Diabetes is well controlled. He is recently placed on Farxiga. For the last 4 or 5 days, he has had night sweats, insomnia, headache, and achiness in the legs. This grew steadily worse and he was concerned about having Covid 19 and he came to the emergency room. He has been vaccinated. He has had a dry cough and slight left lower anterior chest and left upper quadrant pain. He has had no hemoptysis or sputum production. He has been in excellent health otherwise. REVIEW OF SYSTEMS: Otherwise unremarkable. He has had no neurologic problems, nausea, vomiting, diarrhea, urinary complaints, etc. Past medical history, family history and personal and social history are otherwise unremarkable and noncontributory. MEDICATIONS: Medications are and it and to be found in the MAR. Does not smoke or drink. In the emergency room, he was found to also be hyponatremic and demonstrated a minimal left lower lobe pneumonitis. He has no history of exposure to any inhalants, toxins, or individuals with similar symptoms. PHYSICAL EXAM: Vitals signs are normal including a temperature of just over 99. Head, ears, eyes, nose, mouth and throat were normal. Neck veins are not distended. The chest was clear. There are no rales or rhonchi. There are no rubs. Cardiac exam is normal. Abdomen is soft and nontender. Extremities: Normal. Neurologically he is intact. IMPRESSION: He is admitted to the hospital with diagnoses. 1. Probable viral left lower lobe pneumonia. 2. Type 2 diabetes mellitus. PLAN: 1. Bedrest. 2. IV fluids. 3. IV antibiotics. 4. Updrafts. MMODL / IJN: [id number] /
--- NOTE | 2020-12-11 10:55 | PN ---
PROGRESS NOTE DATE OF SERVICE: 12/11/2020 CHIEF COMPLAINT: Left lower lobe pneumonitis. HISTORY OF PRESENT ILLNESS: This gentleman is still not feeling well. He states he might feel a little bit better than when he came in. He did eat. PHYSICAL EXAMINATION: Chest is quite clear. The cardiac exam is normal. The abdomen is soft, nontender. IMPRESSION: Left lower lobe pneumonitis. PLAN: 1. Continue with IV fluids and antibiotics. 2. Add updrafts. MMODL / IJN: [id number] /
[2020-12-11] MEDS: IPRATROPIUM-ALBUTEROL 3 ML NEB INHALATION SCH ×3 (11:12→19:59)
[2020-12-11] MEDS: ACETAMINOPHEN TAB 325 MG TAB PO PRN ×2 (14:07→21:15)
[2020-12-11] MEDS: SODIUM CHLORIDE 0.9% 1,000 ML IV SCH (14:09)
[2020-12-11] MEDS: ATORVASTATIN 80 MG TAB PO SCH (20:33)
[2020-12-11 20:37] LABS: Glucose,Whole Blood 273 mg/dL (75-99)
[2020-12-11] MEDS: AZITHROMYCIN 500 MG in SODIUM CHLORIDE 0.9% 250 ML IVPB SCH (23:17)
[2020-12-12] MEDS: SODIUM CHLORIDE 0.9% 1,000 ML IV SCH ×2 (02:03→13:45)
[2020-12-12 07:09] LABS: Glucose,Whole Blood 160 mg/dL (75-99)
[2020-12-12] MEDS: NON FORMULARY DRUG (Dapagliflozin Propanediol [Farxiga] 10 MG Tablet) PO SCH (07:18)
[2020-12-12] MEDS: ASPIRIN 81 MG PO SCH (07:20)
[2020-12-12] MEDS: metFORMIN 500 MG TAB PO SCH ×2 (07:20→20:33)
[2020-12-12] MEDS: KETOROLAC 15 MG/ML 1 ML VIAL IVP PRN ×3 (07:21→20:50)
[2020-12-12] MEDS: IPRATROPIUM-ALBUTEROL 3 ML NEB INHALATION SCH ×4 (07:56→20:03)
[2020-12-12 09:42] LABS: African American GFR (CKD) 111.6 (60.0-200.0); Blood Urea Nitrogen <5.0 mg/dL (9.0-27.0); Calcium 8.4 mg/dL (8.7-10.3); Carbon Dioxide 25.7 mmol/L (21.6-31.8); Chloride 96 mmol/L (96-109); Glucose 158 mg/dL (70-110); Non-African American GFR(CKD) 96.3 (60.0-200.0); Potassium 4.3 mmol/L (3.5-5.5); Sodium 130 mmol/L (135-145)
[2020-12-12 11:40] LABS: Glucose,Whole Blood 172 mg/dL (75-99)
[2020-12-12 16:26] LABS: Glucose,Whole Blood 306 mg/dL (75-99)
--- NOTE | 2020-12-12 20:32 | XR ---
EXAMINATION TYPE: XR chest 2V DATE OF EXAM: 12/12/2020 COMPARISON: 12/10/2020 HISTORY: Pneumonia. Chest pain TECHNIQUE: FINDINGS: There is some blunting left costophrenic angle. There is mild infiltrate left lung base. Th ere is also slight blunting right costophrenic angle. Heart size is normal. There is no heart failure . There are no hilar masses. Mediastinum is normal. There are chest leads. IMPRESSION: There are increasing mild airspace infiltrate and atelectasis at the lung bases compared to recent exam. Normal heart.
[2020-12-12] MEDS: ATORVASTATIN 80 MG TAB PO SCH (20:33)
[2020-12-12] MEDS: lisinopriL 20 MG TAB PO SCH (20:33)
--- NOTE | 2020-12-12 20:51 | PN ---
PROGRESS NOTE DATE OF SERVICE: 12/12/2020 CHIEF COMPLAINT: Pneumonitis. HISTORY OF PRESENT ILLNESS: This gentleman is doing fairly well, although he is still running low-grade temperatures at night and still feels slightly short of breath and has some left-sided pleuritic pain. PHYSICAL EXAMINATION: His chest is quite clear. The cardiac exam is normal. Abdomen is soft, nontender. IMPRESSION: Left lower lobe pneumonitis. PLAN: Continue with IV fluids and antibiotics with updrafts. MMODL / IJN: [id number] /
[2020-12-12 20:59] LABS: Glucose,Whole Blood 216 mg/dL (75-99)
[2020-12-12] MEDS: ACETAMINOPHEN TAB 325 MG TAB PO PRN (21:02)
[2020-12-12] MEDS: traZODone HCL 50 MG TAB PO SCH (22:26)
[2020-12-12] MEDS: AZITHROMYCIN 500 MG in SODIUM CHLORIDE 0.9% 250 ML IVPB SCH (23:08)
[2020-12-13] MEDS: SODIUM CHLORIDE 0.9% 1,000 ML IV SCH ×2 (01:40→08:02)
[2020-12-13 07:13] LABS: Glucose,Whole Blood 175 mg/dL (75-99)
[2020-12-13] MEDS: NON FORMULARY DRUG (Dapagliflozin Propanediol [Farxiga] 10 MG Tablet) PO SCH (07:58)
[2020-12-13] MEDS: IPRATROPIUM-ALBUTEROL 3 ML NEB INHALATION SCH ×4 (07:59→20:27)
[2020-12-13] MEDS: metFORMIN 500 MG TAB PO SCH ×2 (08:03→20:41)
[2020-12-13] MEDS: ASPIRIN 81 MG PO SCH (08:03)
[2020-12-13] MEDS: KETOROLAC 15 MG/ML 1 ML VIAL IVP PRN ×2 (08:06→13:11)
--- NOTE | 2020-12-13 08:27 | XR ---
EXAMINATION TYPE: XR chest 2V DATE OF EXAM: 12/13/2020 COMPARISON: 12/12/2020 HISTORY: 70-year-old male pneumonitis TECHNIQUE: PA and lateral views FINDINGS: The cardiomediastinal silhouette, aorta, and pulmonary vasculature are within normal limits. Patchy b ibasilar opacities persist. Patchy left midlung opacity persists. Overall slight interval worsening. IMPRESSION: Overall slight interval worsening of patchy bibasilar infiltrates and left midlung infiltrate. Follow -up to ensure clearance. After treatment, clearing should exclude a nodule at the left midlung.
[2020-12-13] MEDS ORDERED: RX INFO: IV CONTRAST WAS GIVEN 1 EACH MISC MISCELLANE PRN (10:09)
--- NOTE | 2020-12-13 11:30 | CT ---
EXAMINATION TYPE: CT chest w con DATE OF EXAM: 12/13/2020 COMPARISON: Radiograph same day HISTORY: 70-year-old male abnormal chest x-ray, assess for lung Nodule TECHNIQUE: Contiguous axial scanning of the chest after the administration of 100 mL of Isovue 300. Coronal/sagittal reconstructions performed. CT DLP: 409.3mGycm. Automatic exposure control utilized for a dose reduction. FINDINGS: Heart is normal size without pericardial effusion. LAD coronary artery calcifications are present. Aorta normal caliber with conventional arterial sobriety anatomy. Mild generalized anasarca change. 9 mm precarinal lymph node is borderline in size. No thoracic lymphadenopathy by CT size criteria. There are trace left greater than right pleural effusions. Bibasilar patchy and confluent consolidation, left greater than right. A couple pleural-based nodules anterior left upper lobe measuring 1.5 cm and 0.7 cm, axial image 21. Punctate 2 mm pulmonary nodule lateral left midlung, axial image 26. 6 mm right midlung pulmonary nodule, axial image 29. 5 mm subpleural pulmonary nodule anteromedial right midlung, axial image 28 Visualized upper abdomen shows nonspecific bladder wall thickening with no hydropic change. There is also prominent IVC distention. Trace perihepatic ascites. Bones: Mild multilevel degenerative disc disease in the thoracic and lumbar spine. Moderate degenerat benjamín disc disease T12-L1 and L1-L2. IMPRESSION: 1. Patchy and confluent bibasilar consolidation, left greater than right. Correlate for infectious or aspiration pneumonitis. 2. Mild generalized anasarca change, mild perihepatic ascites, and trace left greater than right pleu ral effusions. Correlate for fluid overload state/third spacing. 3. A few bilateral pulmonary nodules and a couple areas of subpleural nodularity measuring up to 1.5 cm. Query any known history of primary neoplasm. Either further workup with contrast-enhanced CT of t he abdomen and pelvis versus three-month follow-up CT chest depending on clinical suspicion for metas tatic disease versus inflammatory process. 4. Nonspecific gallbladder wall thickening. No hydropic change to clearly suggest acute cholecystitis . The wall thickening can be seen in fluid overload states.
[2020-12-13 11:41] LABS: Glucose,Whole Blood 194 mg/dL (75-99)
[2020-12-13 12:09] LABS: African American GFR (CKD) 118.9 (60.0-200.0); Albumin 3.8 g/dL (3.80-4.90); Anion Gap 12.4 mmol/L (4.00-12.00); BUN/Creat Ratio 11.67 Ratio (12.00-20.00); Calcium 8.6 mg/dL (8.7-10.3); Carbon Dioxide 19.6 mmol/L (21.6-31.8); Globulin 1.9 g/dL (1.6-3.3); Non-African American GFR(CKD) 102.6 (60.0-200.0); Potassium 4.2 mmol/L (3.5-5.5); Total Bilirubin 0.3 mg/dL (0.3-1.2); Total Protein 5.7 g/dL (6.2-8.2)
[2020-12-13 12:28] LABS: Basophils # (A) 0.02 X 10*3/uL (0.00-0.10); Basophils % (A) 0.3 %; Eosinophils # (A) 0.03 X 10*3/uL (0.04-0.35); Eosinophils % (A) 0.5 %; HCT 32.2 % (39.6-50.0); HGB 10.8 g/dL (13.0-17.0); Lymphocytes # (A) 1.05 X 10*3/uL (0.90-5.00); Lymphocytes % (A) 16.4 %; MCH 27.8 pg (27.0-32.0); MCHC 33.5 g/dL (32.0-37.0); Mean Platelet Volume 11.4 fL (9.5-12.2); Monocytes % (A) 9.3 %; Neutrophils # (A) 4.69 X 10*3/uL (1.80-7.70); Platelet Count 196 X 10*3/uL (140-440); RBC 3.88 X 10*6/uL (4.40-5.60); RDW 15.9 % (11.5-14.5); WBC 6.42 X 10*3/uL (4.50-10.00)
--- NOTE | 2020-12-13 12:40 | P.CNPUL ---
History of Present Illness Consult date: 12/13/20 Reason for consult: dyspnea, pneumonia History of present illness: This is a pleasant 70-year-old male patient presented to the hospital because of pleuritic left-sided chest pain as the patient described pain in the area which is just above the left upper quadrant and under his rib cage on the left. He has some limited cough and congestion. He was getting other symptoms which included nausea and he hasn't emesis at home and a bout of diarrhea. No reported or documented fevers. He did have some limited headaches. For that reason he came into the emergency department. His COVID-19 testing was negative and the patient has been fully vaccinated to COVID-19. He had no altered mentation. His sodium level was 119. He was assisted his IV fluids and the subsequent sodium level came at 131. White cell count is at 6.4. He had a mooes el history as the patient traveled to [facility]. No hemoptysis. No altered mentation. Computed tomography scan of the chest was completed this afternoon. The computed tomography scan showed patchy and confluent bibasilar consolidation left more than right consistent with infection/pneumonia. There was mild generalized anasarca with mild perihepatic ascites and trace left greater than right pleural effusion. There were also a few scattered bilateral pulmonary nodules and couple areas of subpleural nodularity measuring up to 1.5 cm in size. Nonspecific gallbladder wall thickening was also noted. The patient is a nonsmoker. No pleurisy lung disease. Most of alcoholism. No reported history of aspiration. Review of Systems Constitutional: Reports fatigue, Reports weakness Eyes: denies as per HPI, denies blurred vision, denies bulging eye, denies decreased vision, denies diplopia, denies discharge, denies dry eye, denies irritation, denies itching, denies pain, denies photophobia, denies loss of peripheral vision, denies loss of vision, denies tunnel vision/blind spots Ears: deny: decreased hearing, ear discharge, earache, tinnitus Ears, nose, mouth and throat: Reports as per HPI Breasts: absent: as per HPI, gynecomastia Cardiovascular: Reports chest pain Respiratory: Reports cough, Reports dyspnea Gastrointestinal: Reports diarrhea, Reports nausea, Reports vomiting Genitourinary: Reports as per HPI Musculoskeletal: Reports as per HPI Musculoskeletal: absent: ankle pain, ankle stiffness, ankle swelling, as per HPI, elbow pain, elbow stiffness, elbow swelling, foot pain, foot stiffness, foot swelling, hand pain, hand stiffness, hand swelling, hip pain, hip stiffness , hip swelling, knee pain, knee stiffness, knee swelling, shoulder pain, shoulder stiffness, shoulder swelling, wrist pain, wrist stiffness, wrist swelling Integumentary: Reports as per HPI Neurological: Reports as per HPI Psychiatric: Reports as per HPI Endocrine: Reports as per HPI Hematologic/Lymphatic: Reports as per HPI Allergic/Immunologic: Reports as per HPI Past Medical History Past Medical History: Diabetes Mellitus, Hyperlipidemia, Hypertension Additional Past Medical History / Comment(s): hx. colon polyps History of Any Multi-Drug Resistant Organisms: None Reported Past Surgical History: Hernia Repair Additional Past Surgical History / Comment(s): elbow surgery, colonoscopies Past Anesthesia/Blood Transfusion Reactions: Previous Problems w/ Anesthesia Additional Past Anesthesia/Blood Transfusion Reaction / Comment(s): slow to wake up @times Past Psychological History: No Psychological Hx Reported Smoking Status: Never smoker Past Alcohol Use History: Daily Past Drug Use History: None Reported - Past Family History Mother Family Medical History: No Reported History Medications and Allergies Home Medications Medication Instructions Recorded Confirmed Type Aspirin 81 mg PO DAILY 12/30/18 12/11/20 History Atorvastatin [Lipitor] 80 mg PO HS 05/22/20 12/11/20 History Glimepiride [Amaryl] 2 mg PO BID 05/22/20 12/11/20 History metFORMIN HCL [Glucophage] 1,000 mg PO BID 05/22/20 12/11/20 History traZODone HCL 50 - 100 mg PO HS 05/22/20 12/11/20 History Benazepril HCl 20 mg PO HS 12/11/20 12/11/20 History Dapagliflozin Propanediol [Farxiga] 10 mg PO DAILY 12/11/20 12/11/20 History Dulaglutide [Trulicity] 0.75 mg SQ TH 12/11/20 12/11/20 History Allergies Allergy/AdvReac Type Severity Reaction Status Date / Time No Known Allergies Allergy Verified 12/11/20 09:18 Physical Exam Vitals: Vital Signs Temp Pulse Resp BP Pulse Ox 12/13/20 07:50 99.7 F H 73 20 153/80 96 12/13/20 02:40 98.1 F 84 18 153/54 94 L 12/12/20 22:30 98.6 F 12/12/20 20:30 98.1 F 90 17 173/93 97 12/12/20 20:00 90 17 12/12/20 14:00 98.4 F 79 16 143/83 98 Intake and Output 12/12/20 12/13/20 12/13/20 22:59 06:59 14:59 Intake Total 1080 Balance 1080 Intake: Oral 1080 Other: # Voids 3 0 1 # Bowel Movements 0 The patient appeared well nourished and normally developed. Vital signs as documented. Head exam is unremarkable. No scleral icterus or corneal arcus noted. Neck is without jugular venous distension, thyromegaly, or carotid brui ts. Carotid upstrokes are brisk bilaterally. Lungs are diminished breath sounds along with some limited correct in the left lung base. Cardiac exam reveals the PMI to be normally sized and situated. Rhythm is regular. First and second heart sounds normal. No murmurs, rubs or gallops. Abdominal exam reveals normal bowel sounds, no masses, no organomegaly and no aortic enlargement. Extremities are n onedematous and both femoral and pedal pulses are normal.Examination of the skin revealed no evidence of significant rashes, suspicious appearing nevi or other concerning lesions.Neurologically, the patient is awake and alert and the patient does not have any focal neurological deficit. Cranial nerves are essentially intact. Results - Laboratory Findings CBC and BMP: 12/13/20 07:10 12/13/20 07:10 PT/INR, D-dimer D-Dimer 1.64 mg/L FEU (<0.60) H 12/13/20 09:34 Abnormal lab findings: Abnormal Labs 12/10/20 12/10/20 12/10/20 19:49 19:49 20:24 RBC 4.11 L Hgb 11.9 L Hct 33.6 L RDW Lymphocytes # 0.8 L Eosinophils # D-Dimer Sodium 119 L* Chloride 90 L Carbon Dioxide Anion Gap BUN 6 L Creatinine 0.60 L BUN/Creatinine Ratio Glucose 234 H POC Glucose (mg/dL) Calcium Magnesium 1.1 L AST Total Protein 6.0 L Urine Glucose (UA) 4+ H 12/10/20 12/11/20 12/11/20 21:32 05:21 05:21 RBC Hgb 12.5 L Hct 37.4 L RDW Lymphocytes # Eosinophils # D-Dimer Sodium 122 L 129 L Chloride 97 L Carbon Dioxide Anion Gap BUN 5 L Creatinine 0.65 L BUN/Creatinine Ratio Glucose 171 H POC Glucose (mg/dL) Calcium Magnesium AST Total Protein Urine Glucose (UA) 12/11/20 12/12/20 12/12/20 20:35 04:58 07:08 RBC Hgb Hct RDW Lymphocytes # Eosinophils # D-Dimer Sodium 130 L Chloride Carbon Dioxide Anion Gap BUN <5.0 L Creatinine BUN/Creatinine Ratio Glucose 158 H POC Glucose (mg/dL) 273 H 160 H Calcium 8.4 L Magnesium AST Total Protein Urine Glucose (UA) 12/12/20 12/12/20 12/12/20 11:38 16:25 20:55 RBC Hgb Hct RDW Lymphocytes # Eosinophils # D-Dimer Sodium Chloride Carbon Dioxide Anion Gap BUN Creatinine BUN/Creatinine Ratio Glucose POC Glucose (mg/dL) 172 H 306 H 216 H Calcium Magnesium AST Total Protein Urine Glucose (UA) 12/13/20 12/13/20 12/13/20 07:10 07:10 07:11 RBC 3.88 L Hgb 10.8 L Hct 32.2 L RDW 15.9 H Lymphocytes # Eosinophils # 0.03 L D-Dimer Sodium 131 L Chloride Carbon Dioxide 19.6 L Anion Gap 12.40 H BUN 7.0 L Creatinine BUN/Creatinine Ratio 11.67 L Glucose 151 H POC Glucose (mg/dL) 175 H Calcium 8.6 L Magnesium AST 37 H Total Protein 5.7 L Urine Glucose (UA) 12/13/20 12/13/20 09:34 11:40 RBC Hgb Hct RDW Lymphocytes # Eosinophils # D-Dimer 1.64 H Sodium Chloride Carbon Dioxide Anion Gap BUN Creatinine BUN/Creatinine Ratio Glucose POC Glucose (mg/dL) 194 H Calcium Magnesium AST Total Protein Urine Glucose (UA) - Diagnostic Findings Chest x-ray: image reviewed CT scan - chest: image reviewed Assessment and Plan Plan: 1 bilateral lower lobe pneumonia left more than right. The patient is significant consolidation left lower lobe in addition to pleuritic chest pain, presented to us with some gastrointestinal symptoms of nausea vomiting and hyponatremia in addition to some limited cough. Nevertheless, the CAT scan findings are very much consistent with pneumonia left more than right with development of a small left-sided pleural effusion and the patient is currently on a combination of Rocephin and Zithromax 2 nonspecific pleural fluid and alert is that needs to be followed up on outpatient basis at a later stage. Follow-up CAT scan 3 hyperlipidemia 4 diabetes mellitus 5 hypertension 6 history of colonic polyps 7 hyponatremia 8 nausea vomiting and diarrhea, recovered Plan Continue Rocephin and Zithromax Check a Legionella urine antigen Check blood cultures Monitor chest x-ray findings in regards to the left lower lobe pneumonia Electrolytes improved and the sodium level is normalized
[2020-12-13 16:46] LABS: Glucose,Whole Blood 163 mg/dL (75-99)
[2020-12-13] MEDS: lisinopriL 20 MG TAB PO SCH (20:40)
[2020-12-13] MEDS: ATORVASTATIN 80 MG TAB PO SCH (20:40)
[2020-12-13] MEDS ORDERED: AZITHROMYCIN 500 MG TAB PO SCH (21:00)
[2020-12-13 21:13] LABS: Glucose,Whole Blood 192 mg/dL (75-99)
[2020-12-13] MEDS: traZODone HCL 50 MG TAB PO SCH (22:06)
[2020-12-13] MEDS: IBUPROFEN 400 MG TAB PO PRN (22:12)
--- NOTE | 2020-12-13 23:17 | P.CONS ---
History of Present Illness - Reason for Consult Consult date: 12/13/20 pneumonia Requesting physician: Hernando Kessler - Chief Complaint Fever and cough x few days - History of Present Illness History of present illness : Patient is 62-year male presented to the hospital 3 days ago for evaluation of 2 to 3-day history of fever patient also complaining of cough which has been moderate intensity and not bringing up any sputum patient has felt nauseated and did have an episode of nonbilious nonbloody emesis and one episode of diarrhea with the symptom the patient presented to hospital patient on arrival into the ER did have a fever of 103 F and the patient was spiking fever until yesterday today he has a low-grade fever of 99.7 patient did not have any hypoxemia or need for supplemental oxygen patient did have a normal white count D-dimer was mildly elevated BUN and creatinine are normal AST was mildly elevated urine was negative mejias PCR was negative patient did have a chest x-ray pneumonia left base patient has been treated with Rocephin and Zithromax CT was obtained today with left greater than right bibasilar pneumonia mild anasarca and few pulmonary nodules ID was consulted for further management of antibiotic therapy Review of system: Positive point has been mentioned in HPI rest of the systems are negative Past medical history : Reviewed, documented below Past surgical history : Reviewed, documented below Social history: Reviewed, documented below Medications: Reviewed, as documented below GENERAL DESCRIPTION: Elderly male lying in bed, no distress. No tachypnea or accessory muscle of respiration use. HEENT: Shows Pallor , no scleral icterus. Oral mucous membrane is dry. NECK: Trachea central, no thyromegaly. LUNGS: Unlabored breathing. Decreased breath sound at the base. No wheeze or crackle. HEART: S1, S2, regular rate and rhythm. ABDOMEN: Soft, no tenderness , guarding or rigidity EXTREMITIES: No edema of feet. SKIN: No rash, no masses palpable. NEUROLOGICAL: The patient is awake, alert, oriented x3, mood and affect normal. LABS AND RADIOLOGY: Reviewed results see below Assessment : Patient presented to hospital with a fever nonproductive cough left-sided pleuritic chest pain source likely left lobe pneumonia likely community-acquired in this patient seem to have shown some response to the Rocephin and Zithromax though slowly but no worsening Plan: 1-we will try to obtain a sputum for Gram stain culture and check urine for Legionella antigen 2-check inflammatory markers 3-Rocephin 1 g daily and Zithromax to continue We will follow on clinical condition and cultures to further adjust medication if needed Thank you for this consultation we will follow the patient along with you Past Medical History Past Medical History: Diabetes Mellitus, Hyperlipidemia, Hypertension Additional Past Medical History / Comment(s): hx. colon polyps History of Any Multi-Drug Resistant Organisms: None Reported Past Surgical History: Hernia Repair Additional Past Surgical History / Comment(s): elbow surgery, colonoscopies Past Anesthesia/Blood Transfusion Reactions: Previous Problems w/ Anesthesia Additional Past Anesthesia/Blood Transfusion Reaction / Comm: slow to wake up @times Past Psychological History: No Psychological Hx Reported Smoking Status: Never smoker Past Alcohol Use History: Daily Past Drug Use History: None Reported - Past Family History Mother Family Medical History: No Reported History Medications and Allergies Home Medications Medication Instructions Recorded Confirmed Type Aspirin 81 mg PO DAILY 12/30/18 12/11/20 History Atorvastatin [Lipitor] 80 mg PO HS 05/22/20 12/11/20 History Glimepiride [Amaryl] 2 mg PO BID 05/22/20 12/11/20 History metFORMIN HCL [Glucophage] 1,000 mg PO BID 05/22/20 12/11/20 History traZODone HCL 50 - 100 mg PO HS 05/22/20 12/11/20 History Benazepril HCl 20 mg PO HS 12/11/20 12/11/20 History Dapagliflozin Propanediol [Farxiga] 10 mg PO DAILY 12/11/20 12/11/20 History Dulaglutide [Trulicity] 0.75 mg SQ TH 12/11/20 12/11/20 History Allergies Allergy/AdvReac Type Severity Reaction Status Date / Time No Known Allergies Allergy Verified 12/11/20 09:18 Physical Exam Vitals: Vital Signs Temp Pulse Resp BP Pulse Ox 12/13/20 07:50 99.7 F H 73 20 153/80 96 12/13/20 02:40 98.1 F 84 18 153/54 94 L 12/12/20 22:30 98.6 F 12/12/20 20:30 98.1 F 90 17 173/93 97 12/12/20 20:00 90 17 12/12/20 14:00 98.4 F 79 16 143/83 98 Intake and Output 12/12/20 12/13/20 12/13/20 22:59 06:59 14:59 Intake Total 1080 Balance 1080 Intake: Oral 1080 Other: # Voids 3 0 1 # Bowel Movements 0 Results CBC & Chem 7: 12/13/20 07:10 12/13/20 07:10 Labs: Abnormal Lab Results - Last 24 Hours (Table) 12/12/20 12/12/20 12/12/20 Range/Units 11:38 16:25 20:55 D-Dimer (<0.60) mg/L FEU POC Glucose (mg/dL) 172 H 306 H 216 H (75-99) mg/dL 12/13/20 12/13/20 Range/Units 07:11 09:34 D-Dimer 1.64 H (<0.60) mg/L FEU POC Glucose (mg/dL) 175 H (75-99) mg/dL Microbiology - Last 24 Hours (Table) 12/10/20 22:02 Blood Culture - Preliminary Blood No Growth after 48 hours 12/10/20 21:09 Blood Culture - Preliminary Blood No Growth after 48 hours
--- NOTE | 2020-12-13 23:19 | PN ---
PROGRESS NOTE CHIEF COMPLAINT: Left lower lobe pneumonitis and viral pneumonia. HISTORY OF PRESENT ILLNESS: This gentleman is feeling a little bit worse. He is not having shortness of breath. He is having some pleuritic discomfort in the left lateral chest area. He is still running a temps at night around 99 degrees, and he still has a severe headache. PHYSICAL EXAMINATION: He is afebrile now. Chest demonstrates very few rales on either side. Cardiac exam is normal. He has no nuchal rigidity. Neurologically he is intact. IMPRESSION: 1. Left lower lobe viral pneumonitis and pleurisy. 2. Viral headache. 3. Type 2 diabetes mellitus. 4. Hypertension. PLAN: 1. Obtain consult pulmonology and infectious Disease. 2. CT of the chest. MMODL / IJN: [id number] /
[2020-12-14] MEDS: SODIUM CHLORIDE 0.9% 1,000 ML IV SCH (04:48)
[2020-12-14 06:21] LABS: Anisocytosis Slight; Basophils % (A) 0 %; Eosinophils # (A) 0.1 k/uL (0-0.7); Eosinophils % (A) 1 %; HCT 32.6 % (39.0-53.0); Hypochromasia Slight; Lymphocytes # (A) 1.9 k/uL (1.0-4.8); Lymphocytes % (A) 33 %; MCH 28.6 pg (25.0-35.0); MCHC 33.8 g/dL (31.0-37.0); MCV 84.4 fL (80.0-100.0); Mean Platelet Volume 9.4; Monocytes # (A) 0.6 k/uL (0-1.0); Monocytes % (A) 9 %; Neutrophils # (A) 3.2 k/uL (1.3-7.7); Neutrophils % (A) 54 %; Platelet Count 228 k/uL (150-450); Poikilocytosis Slight; RBC 3.86 m/uL (4.30-5.90); RDW 17.2 % (11.5-15.5); WBC 5.9 k/uL (3.8-10.6)
[2020-12-14] MEDS: NON FORMULARY DRUG (Dapagliflozin Propanediol [Farxiga] 10 MG Tablet) PO SCH (07:00)
[2020-12-14] MEDS: ASPIRIN 81 MG PO SCH (07:05)
[2020-12-14] MEDS: IBUPROFEN 400 MG TAB PO PRN (07:06)
[2020-12-14] MEDS: metFORMIN 500 MG TAB PO SCH (07:06)
[2020-12-14 07:09] LABS: Glucose,Whole Blood 159 mg/dL (75-99)
[2020-12-14] MEDS: IPRATROPIUM-ALBUTEROL 3 ML NEB INHALATION SCH ×2 (07:58→11:24)
[2020-12-14 11:31] LABS: Glucose,Whole Blood 241 mg/dL (75-99)
--- NOTE | 2020-12-14 12:01 | P.PN ---
Subjective Progress Note Date: 12/14/20 This is a pleasant 70-year-old male patient presented to the hospital because of pleuritic left-sided chest pain as the patient described pain in the area which is just above the left upper quadrant and under his rib cage on the left. He has some limited cough and congestion. He was getting other symptoms which included nausea and he hasn't emesis at home and a bout of diarrhea. No reported or documented fevers. He did have some limited headaches. For that reason he came into the emergency department. His COVID-19 testing was negative and the patient has been fully vaccinated to COVID-19. He had no altered mentation. His sodium level was 119. He was assisted his IV fluids and the subsequent sodium level came at 131. White cell count is at 6.4. He had a travel history as the patient traveled to [facility]. No hemoptysis. No altered mentation. Computed tomography scan of the chest was completed this afternoon. The computed tomography scan showed patchy and confluent bibasilar consolidation left more than right consistent with infection/pneumonia. There was mild generalized anasarca with mild perihepatic ascites and trace left greater than right pleural effusion. There were also a few scattered bilateral pulmonary nodules and couple areas of subpleural nodularity measuring up to 1.5 cm in size. Nonspecific gallbladder wall thickening was also noted. The earle flynn is a nonsmoker. No pleurisy lung disease. Most of alcoholism. No reported history of aspiration. 12/14/2020, the patient is doing much better. No more pleurisy. His ambulating. Is on room air oxygen. CAT scan of the chest showed lower lobe consolidation more so on the left. There was also some pleural noted activities to be followed up later on outpatient basis in this to some subcentimeter pulmonary nodules. Blood cultures been negative. No cough. No sputum production. No nausea. No vomiting. No diarrhea. His headache has subsided. He has no other complaints otherwise. Objective - Vital Signs Vital signs: Vital Signs Temp 97.3 F L 12/14/20 07:33 Pulse 71 12/14/20 07:33 Resp 16 12/14/20 07:45 BP 149/82 12/14/20 07:33 Pulse Ox 96 12/14/20 07:33 Intake & Output 12/13/20 12/14/20 12/14/20 18:59 06:59 18:59 Other: # Voids 1 2 - Exam The patient appeared well nourished and normally developed. Vital signs as documented. Head exam is unremarkable. No scleral icterus or corneal arcus noted. Neck is without jugular venous distension, thyromegaly, or carotid bruits. Carotid upstrokes are brisk bilaterally. Lungs are clear to auscultation and percussion. Cardiac exam reveals the PMI to be normally sized and situated. Rhythm is regular. First and second heart sounds normal. No murmurs, rubs or gallops. Abdominal exam reveals normal bowel sounds, no masses, no organomegaly and no aortic enlargement. Extremities are nonedematous and both femoral and pedal pulses are normal. - Labs CBC & Chem 7: 12/14/20 05:29 12/13/20 07:10 Labs: Abnormal Lab Results - Last 24 Hours (Table) 12/13/20 12/13/20 12/13/20 Range/Units 07:10 07:10 16:44 RBC 3.88 L (4.40-5.60) X 10*6/uL Hgb 10.8 L (13.0-17.0) g/dL Hct 32.2 L (39.6-50.0) % RDW 15.9 H (11.5-14.5) % Eosinophils # 0.03 L (0.04-0.35) X 10*3/uL Sodium 131 L (135-145) mmol/L Carbon Dioxide 19.6 L (21.6-31.8) mmol/L Anion Gap 12.40 H (4.00-12.00) mmol/L BUN 7.0 L (9.0-27.0) mg/dL BUN/Creatinine Ratio 11.67 L (12.00-20.00) Ratio Glucose 151 H (70-110) mg/dL POC Glucose (mg/dL) 163 H (75-99) mg/dL Calcium 8.6 L (8.7-10.3) mg/dL AST 37 H (14-35) U/L C-Reactive Protein (0.0-0.8) mg/dL Total Protein 5.7 L (6.2-8.2) g/dL 12/13/20 12/14/20 12/14/20 Range/Units 21:02 05:29 05:29 RBC 3.86 L (4.40-5.60) X 10*6/uL Hgb 11.0 L (13.0-17.0) g/dL Hct 32.6 L (39.6-50.0) % RDW 17.2 H (11.5-14.5) % Eosinophils # (0.04-0.35) X 10*3/uL Sodium (135-145) mmol/L Carbon Dioxide (21.6-31.8) mmol/L Anion Gap (4.00-12.00) mmol/L BUN (9.0-27.0) mg/dL BUN/Creatinine Ratio (12.00-20.00) Ratio Glucose (70-110) mg/dL POC Glucose (mg/dL) 192 H (75-99) mg/dL Calcium (8.7-10.3) mg/dL AST (14-35) U/L C-Reactive Protein 9.4 H (0.0-0.8) mg/dL Total Protein (6.2-8.2) g/dL 12/14/20 12/14/20 Range/Units 07:08 11:29 RBC (4.40-5.60) X 10*6/uL Hgb (13.0-17.0) g/dL Hct (39.6-50.0) % RDW (11.5-14.5) % Eosinophils # (0.04-0.35) X 10*3/uL Sodium (135-145) mmol/L Carbon Dioxide (21.6-31.8) mmol/L Anion Gap (4.00-12.00) mmol/L BUN (9.0-27.0) mg/dL BUN/Creatinine Ratio (12.00-20.00) Ratio Glucose (70-110) mg/dL POC Glucose (mg/dL) 159 H 241 H (75-99) mg/dL Calcium (8.7-10.3) mg/dL AST (14-35) U/L C-Reactive Protein (0.0-0.8) mg/dL Total Protein (6.2-8.2) g/dL Microbiology - Last 24 Hours (Table) 12/10/20 22:02 Blood Culture - Preliminary Blood No Growth after 72 hours 12/10/20 21:09 Blood Culture - Preliminary Blood No Growth after 72 hours Assessment and Plan Plan: 1 bilateral lower lobe pneumonia left more than right. The patient is significant consolidation left lower lobe in addition to pleuritic chest pain, presented to us with some gastrointestinal symptoms of nausea vomiting and h yponatremia in addition to some limited cough. Nevertheless, the CAT scan findings are very much consistent with pneumonia left more than right with development of a small left-sided pleural effusion and the patient is currently on a combination of Rocephin and Zithromax 2 nonspecific pleural fluid and alert is that needs to be followed up on outpatient basis at a later stage. Follow-up CAT scan 3 hyperlipidemia 4 diabetes mellitus 5 hypertension 6 history of colonic polyps 7 hyponatremia 8 nausea vomiting and diarrhea, recovered Plan Clinically improved. The patient can be discharged home on Levaquin to complete a total of 7-10 day course. Outpatient follow-up with a repeat chest x-ray to make sure the pneumonia is recovered. Outpatient follow-up with another CAT scan of the chest and 46 months time to monitor the pulmonary nodules and pleural surfaces noted disease. The patient is doing well. Answer questions to satisfaction. We'll follow up on outpatient basis.
[2020-12-14 14:12] VITALS: BP 148/89; PULSE 76; RESP 18; TEMP 98.2
--- NOTE | 2020-12-14 14:15 | PN ---
PROGRESS NOTE DATE OF SERVICE: 12/14/2020 REASON FOR FOLLOWUP: Pneumonia. INTERVAL HISTORY: The patient is afebrile. The patient is breathing comfortably. The patient denies having any chest pain. Still has a cough with occasional sputum. No vomiting. No abdominal pain or diarrhea. PHYSICAL EXAMINATION: Blood pressure is 149/82 with a pulse of 71, temperature 97.3. He is 96% on room air. GENERAL DESCRIPTION: General description is an elderly male up in the room in no distress. RESPIRATORY SYSTEM: Unlabored breathing. Decreased breath sounds at the bases. No wheeze. HEART: S1, S2. Regular rate and rhythm. ABDOMEN: Soft. No tenderness. LABS: Urine for Legionella antigen is negative. Hemoglobin is 11, white count 5.9. DIAGNOSTIC IMPRESSION AND PLAN: Patient with bilateral lower lobe pneumonia, more on the left side, with overall improvement on Rocephin and Zithromax. Finish therapy with oral Levaquin. Prescription sent to the pharmacy. Close outpatient followup. MMODL / IJN: [id number] /
--- NOTE | 2020-12-14 21:55 | DS ---
DISCHARGE SUMMARY CHIEF COMPLAINT: Left-sided chest pain and shortness of breath with cough. HISTORY OF PRESENT ILLNESS AND PHYSICAL EXAMINATION: Details of this man's history and physical can be found in the initial workup. LABORATORY STUDIES: While he was in the hospital, he had laboratory studies, details of which can be found in the laboratory section of chart. COURSE IN THE HOSPITAL: After admission, he was placed on bedrest, started his intravenous fluids, updrafts and IV antibiotics. He continued to have shortness of breath and chest pain with malaise and low-grade fevers along with a headache. He was seen by pulmonology, Infectious Disease and was doing better. It was felt that he could be discharged on the . He will go home on Levaquin in addition to his other medications. FINAL DIAGNOSES: 1. Bilateral lower lobe bronchial pneumonia, viral. 2. Pleurisy. 3. History of hypertension. 4. Diabetes mellitus. OPERATIONS: None. CONSULTATIONS: Pulmonology, Infectious Disease. He is improved. MMODL / IJN: [id number] /
== END 2020-12-14 15:23 | disposition home or self-care (01) | DRG 194 ==
LOC: EC 19:09 → 4SSUR 21:39
PROVIDERS: ADMIT Family Medicine; ATTEND Family Medicine
DX: J12.9 Viral pneumonia, unspecified (principal); E87.1 Hypo-osmolality and hyponatremia; I10 Essential (primary) hypertension; E11.65 Type 2 diabetes mellitus with hyperglycemia; E78.5 Hyperlipidemia, unspecified; D64.9 Anemia, unspecified; E83.42 Hypomagnesemia; E86.0 Dehydration; Z20.822 Contact with and (suspected) exposure to COVID-19; Y95 Nosocomial condition; Z86.010 Personal history of colon polyps; Z79.84 Long term (current) use of oral hypoglycemic drugs; Z79.899 Other long term (current) drug therapy; Z79.82 Long term (current) use of aspirin; Z87.19 Personal history of other diseases of the digestive system
CPT/HCPCS: 36415; 71046; 71260; 80048; 80053; 81003; 83605; 83735; 84145; 84295; 85025; 85379; 86140; 87040; 87449; 87502; 87635; 94640; 96361; 96365; 96375; 99285

== ENCOUNTER → 2021-01-31 | Outpatient (CLI) | payer MEDICARE ==
[2021-01-31 08:38] LABS: African American GFR (CKD) >90 (>60 ml/min/1.73 sqM); Blood Urea Nitrogen 13 mg/dL (9-20); Non-African American GFR(CKD) >90 (>60 ml/min/1.73 sqM)
--- NOTE | 2021-01-31 11:36 | CT ---
EXAMINATION TYPE: CT chest w con DATE OF EXAM: 01/31/2021 COMPARISON: 12/13/2020 HISTORY: Pneumonia CT DLP: 202.5 mGycm, Automated exposure control for dose reduction was used. CONTRAST: Performed injected with 100 mL of Isovue 300. TECHNIQUE: Axial images were obtained at 5 mm thick sections. Reconstructed images are reviewed on [employer] computer in the coronal plane. FINDINGS: Portion of the thyroid visualized is normal. There is a 0.7 cm nodule within the periphery of the right mid lung. This appears to contain a centra l calcification suggestive for a granuloma. This was present previously and is stable. Series 4 image 28. Within the periphery of the left lung at the same level is a 0.3 cm nodule. There is an area of thickening along the pleural margin anterior lateral left upper lung field measur ing 2.1 x 0.7 cm. Series 4 image 19 some pleural thickening along the anterior margin measuring 1.4 x 0.5 cm may be present in the anterior left upper lung field. Series 4 image 15. No enlarged mediastinal or hilar adenopathy is evident. The ascending aorta diameter at the level o f the main pulmonary artery is 3.2 cm. The main pulmonary artery diameter at the bifurcation is 2.[address] sections are obtained through the upper abdomen. Couple of calcified granuloma are within the spleen. IMPRESSIONS: 1. Pleural thickening along the anterior and anterolateral left upper lung field, present previously. 2. Small nodules discussed above present previously appear unchanged. 3. No suspicious consolidations to suggest pneumonia. 4. Follow-up CT chest in 6 months to confirm stability.
== END | disposition home or self-care (01) ==
LOC: RADCTMAIN 07:40
PROVIDERS: ATTEND Internal Medicine Critical Care Medicine
DX: J18.8 Other pneumonia, unspecified organism (principal)
CPT/HCPCS: 82565; 84520; 71260; 36415; Q9967

== ENCOUNTER 2021-08-15 16:05 | Emergency (ER) | payer MEDICARE ==
[2021-08-15 16:23] VITALS: BP 154/85; PULSE 106; RESP 18; TEMP 99.2
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
--- NOTE | 2021-08-15 17:18 | CT ---
EXAMINATION TYPE: CT brain wo con CT DLP: 1129.4 mGycm, Automated exposure control for dose reduction was used. DATE OF EXAM: 08/15/2021 4:58 PM COMPARISON: Prior CT Brain from 09/23/2017 CLINICAL INDICATION:Male, 71 years old with history of head trauma, Head injury. TECHNIQUE: Brain: Multiple axial CT images of the brain were obtained without IV contrast. FINDINGS: Brain: Extra-axial spaces: No abnormal extra-axial fluid collections. Ventricular system: Within normal limits Cerebral parenchyma: No acute intraparenchymal hemorrhage or mass effect. The cisse-white junction is well differentiated. Cerebellum: Unremarkable. Mass effect: No evidence of midline shift. Intracranial vasculature: unremarkable Soft tissues: Frontal scalp laceration is identified. Calvarium/osseous structures: No depressed skull fracture. Paranasal sinuses and mastoid air cells: Mild scattered paranasal sinus disease. Visualized orbits: Orbital contents are intact. IMPRESSION: 1. No acute intracranial process. 2. Frontal scalp laceration.
[2021-08-15] MEDS ORDERED: LIDOCAINE 1%-EPI 1:100,000 20 ML VIAL SQ STA (17:30)
== END 2021-08-15 19:47 | disposition home or self-care (01) ==
LOC: EC 16:05
DX: S01.01XA Laceration without foreign body of scalp, initial encounter (principal); E11.9 Type 2 diabetes mellitus without complications; I10 Essential (primary) hypertension; V28.0XXA Motorcycle driver injured in noncollision transport accident in nontraffic accident, initial encounter
CPT/HCPCS: 12015; 70450; 99283

== ENCOUNTER 2023-03-18 21:39 | Emergency (ER) | payer MEDICARE ==
[2023-03-18 21:52] LABS: Glucose,Whole Blood 296 mg/dL (70-110)
[2023-03-18 22:12] VITALS: BP 153/81; PULSE 79; RESP 18; TEMP 97.6
[2023-03-18] MEDS ORDERED: SODIUM CHLORIDE 0.9% 1,000 ML IV ONE (22:27)
--- NOTE | 2023-03-18 22:27 | ED ---
Recheck HPI - General Chief Complaint: Recheck/Abnormal Lab/Rx Stated Complaint: Hyperglycemia Time Seen by Provider: 03/18/23 22:07 Source: patient Mode of arrival: ambulatory Limitations: no limitations - History of Present Illness Initial Comments: 72-year-old male with long history of diabetes previously on multiple medications however he developed a rash and there is concerned that it may be a drug rash all of his medications were discontinued. Patient is been on a very low carbohydrate diet for approximately 6 weeks however today he had a higher volume of carbohydrates. Patient checked his sugar this evening at home and noted that it was greater than 500 he was advised that he could be in DKA to come to the hospital. Patient reports he feels well no nausea or vomiting no abdominal pain. - Related Data Home Medications Medication Instructions Recorded Confirmed Aspirin 81 mg PO DAILY 12/30/18 08/15/21 Atorvastatin [Lipitor] 80 mg PO HS 05/22/20 08/15/21 metFORMIN HCL [Glucophage] 1,000 mg PO BID 05/22/20 08/15/21 Benazepril HCl 20 mg PO HS 12/11/20 08/15/21 Dapagliflozin Propanediol [Farxiga] 10 mg PO DAILY 12/11/20 08/15/21 Dulaglutide [Trulicity] 0.75 mg SQ TH 12/11/20 08/15/21 Ergocalciferol (Vitamin D2) 1,250 mcg PO Q30D 08/15/21 08/15/21 [Drisdol (50,000 Iu)] Previous Rx's Medication Instructions Recorded Cephalexin [Keflex] 1,000 mg PO Q12HR 5 Days #20 cap 08/15/21 Allergies Allergy/AdvReac Type Severity Reaction Status Date / Time No Known Allergies Allergy Verified 08/15/21 17:55 Review of Systems ROS Statement: Those systems with pertinent positive or pertinent negative responses have been documented in the HPI. ROS Other: All systems not noted in ROS Statement are negative. Past Medical History Past Medical History: Diabetes Mellitus, Hyperlipidemia, Hypertension Additional Past Medical History / Comment(s): hx. colon polyps History of Any Multi-Drug Resistant Organisms: None Reported Past Surgical History: Hernia Repair Additional Past Surgical History / Comment(s): elbow surgery, colonoscopies Past Anesthesia/Blood Transfusion Reactions: Previous Problems w/ Anesthesia Additional Past Anesthesia/Blood Transfusion Reaction / Comment(s): slow to wake up @times Past Psychological History: No Psychological Hx Reported Smoking Status: Never smoker Past Alcohol Use History: Daily Past Drug Use History: None Reported - Past Family History Mother Family Medical History: No Reported History General Exam - General Exam Comments Initial Comments: Physical Exam GENERAL: Patient is well-developed and well-nourished. Patient is nontoxic and well-hydrated and is in no distress. HENT: Normocephalic, Atraumatic. EYES: PERRL, EOMI PULMONARY: Unlabored respirations. CARDIOVASCULAR: Warm and well perfused extremities ABDOMEN: Non-distended SKIN: No rashes or bruising : Deferred NEUROLOGIC: Alert and oriented Normal speech Normal gait MUSCULOSKELETAL: Moving all extremities with no apparent injury PSYCHIATRIC: No SI/HI Limitations: no limitations Course Vital Signs 03/18/23 21:45 Temperature 97.6 F Pulse Rate 79 Respiratory 18 Rate Blood Pressure 153/81 O2 Sat by Pulse 99 Oximetry Medical Decision Making - Medical Decision Making Was pt. sent in by a medical professional or institution (, PA, NEUROLOGY TECHNICIAN, urgent care, hospital, or usp...) When possible be specific @ -No Did you speak to anyone other than the patient for history (EMS, parent, family, police, friend...)? What history was obtained from this source @ - at bedside Did you review nursing and triage notes (agree or disagree)? Why? @ -I reviewed and agree with nursing and triage notes Were old charts reviewed (outside hosp., previous admission, EMS record, old EKG, old radiological studies, urgent care reports/EKG's, usp records)? Report findings @ -No old charts were reviewed Differential Diagnosis (chest pain, altered mental status, abdominal pain women, abdominal pain men, vaginal bleeding, weakness, fever, dyspnea, syncope, headache, dizziness, GI bleed, back pain, seizure, CVA, palpatations, mental health, musculoskeletal)? @ -Differential includes diabetic hyperglycemia, acute chest, DKA EKG interpreted by me (3pts min.). @ -As above X-rays interpreted by me (1pt min.). @ -None done CT interpreted by me (1pt min.). @ -None done U/S interpreted by me (1pt. min.). @ -None done What testing was considered but not performed or refused? (CT, X-rays, U/S, labs)? Why? @ -None What meds were considered but not given or refused? Why? @ -None Did you discuss the management of the patient with other professionals (professionals i.e. , PA, NEUROLOGY TECHNICIAN, lab, RT, psych nurse, social staff worker, pipe stem repairer, teacher, intelligence officer basic, case finisher)? Give summary @ -No Was smoking cessation discussed for >3mins.? @ -No Was critical care preformed (if so, how long)? @ -No Were there social determinants of health that impacted care today? How? (Homelessness, low income, unemployed, alcoholism, drug addiction, transportation, low edu. Level, literacy, decrease access to med. care, fpc, rehab)? @ -No Was there de-escalation of care discussed even if they declined (Discuss DNR or withdrawal of care, Hospice)? DNR status @ -No What co-morbidities impacted this encounter? (DM, HTN, Smoking, COPD, CAD, Cancer, CVA, ARF, Chemo, Hep., AIDS, mental health diagnosis, sleep apnea, morbid obesity)? @ -None Was patient admitted / discharged? Hospital course, mention meds given and route, prescriptions, significant lab abnormalities, going to OR and other pertinent info. @ -Patient discharged The patient was seen and evaluated, his glucose was elevated but not dangerously so he was asymptomatic and stated that because his glucose is improved so much since taking at home he doesn't feel it's needed to have blood work performed he doesn't feel he needs any IV fluids. Patient's awake alert oriented in no acute distress with vital signs within acceptable limits. I do feel patient is stable for discharge home he will contact Dr. Kessler in the morning to discuss resuming by mouth medications for diabetes. Undiagnosed new problem with uncertain prognosis? @ -No Drug Therapy requiring intensive monitoring for toxicity (Heparin, Nitro, Insulin, Cardizem)? @ -No Were any procedures done? @ -No Diagnosis/symptom? @ -Hyperglycemia due to type 2 diabetes Acute, or Chronic, or Acute on Chronic? @ -default Uncomplicated (without systemic symptoms) or Complicated (systemic symptoms)? @ -default Side effects of treatment? @ -No Exacerbation, Progression, or Severe Exacerbation? @ -No Poses a threat to life or bodily function? How? (Chest pain, [place], [place], pneumonia, PE, COPD, DKA, ARF, appy, cholecystitis, CVA, Diverticulitis, Homicidal, Suicidal, threat to staff... and all critical care pts) @ -No - Lab Data Lab Results 03/18/23 03/18/23 Range/Units 21:50 22:48 POC Glucose (mg/dL) 296 H 252 H (70-110) mg/dL POC Glu Fabric Sourcer Radha Jaime Noah Disposition Clinical Impression: Hyperglycemia Disposition: HOME SELF-CARE Condition: Stable Additional Instructions: Follow up with Dr Kessler tomorrow as discussed, return to the ER as needed Is patient prescribed a controlled substance at d/c from ED?: No Referrals: Hernando Kessler MD [Primary Care Provider] - 1-2 days
[2023-03-18 22:52] LABS: Glucose,Whole Blood 252 mg/dL (70-110)
== END 2023-03-18 23:17 | disposition home or self-care (01) ==
LOC: EC 21:39
DX: E11.65 Type 2 diabetes mellitus with hyperglycemia (principal); I10 Essential (primary) hypertension; E78.5 Hyperlipidemia, unspecified; Z79.84 Long term (current) use of oral hypoglycemic drugs; Z79.82 Long term (current) use of aspirin; Z79.899 Other long term (current) drug therapy
CPT/HCPCS: 36415; 99283